=== PATIENT | male | born 1965 | race Caucasian/White ===

== ENCOUNTER 2019-07-07 14:22 | Emergency (ER) | payer BC ==
[2019-07-07] MEDS ORDERED: Ibuprofen TAB* 600 MG PO ONE (16:15)
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
[2019-07-07 17:42] VITALS: BP 151/90
== END 2019-07-07 17:41 | disposition home or self-care (01) ==
LOC: ED 14:22
DX: R10.31 Right lower quadrant pain (principal); E03.9 Hypothyroidism, unspecified; I10 Essential (primary) hypertension; Z85.89 Personal history of malignant neoplasm of other organs and systems; Z79.82 Long term (current) use of aspirin; Z79.890 Hormone replacement therapy; Z79.899 Other long term (current) drug therapy
CPT/HCPCS: 72192; 99282; A9270-GY

== ENCOUNTER 2019-10-22 16:46 | Observation (INO) ==
[2019-10-22 17:46] LABS: ABS Basophils 0.1 10^3/ul (0-0.2); ABS Eosinophils 0.3 10^3/ul (0-0.6); ABS Lymphocytes 1.6 10^3/ul (1.0-4.8); ABS Monocytes 0.6 10^3/ul (0-0.8); Eosinophil % 2.1 %; Hematocrit 34 % (42-52); Hemoglobin 11.3 g/dL (14.0-18.0); Lymphocyte % 11.8 %; Mean Corpuscular HGB Conc 34 g/dL (31-36); Mean Corpuscular Hemoglobin 31 pg (27-31); Mean Corpuscular Volume 93 fL (80-94); Mean Platelet Volume 7.4 fL (7.4-10.4); Platelet Count 153 10^3/uL (150-450); Red Blood Count 3.61 10^6 /uL (4.18-5.48); Red Cell Distribution Width 14 % (10-15); White Blood Count 13.8 10^3/uL (3.5-10.8)
[2019-10-22 18:02] LABS: ALT 12 U/L (7-52); AST 14 U/L (13-39); Albumin/Globulin Ratio 1.2 (1-3); Alkaline Phosphatase 52 U/L (34-104); Anion Gap 3 mmol/L (2-11); BUN/Creatinine Ratio 18.8 (8-20); Blood Urea Nitrogen 22 mg/dL (6-24); CO2 Carbon Dioxide 28 mmol/L (22-32); Calcium 7.8 mg/dL (8.6-10.3); Chloride 105 mmol/L (101-111); EGFR Non-African American 64.5 (>60); Globulin 2.5 g/dL (2-4); Glucose 91 mg/dL (70-100); Potassium 4.1 mmol/L (3.5-5.0); Sodium 136 mmol/L (135-145); Total Protein 5.5 g/dL (6.4-8.9)
[2019-10-22] MEDS ORDERED: Enoxaparin 40 MG/0.4 ML SYR(*) SUBCUT SCH (20:00)
[2019-10-22 22:04] LABS: C Reactive Protein 128.46 mg/L (<8.01)
[2019-10-22 22:10] LABS: Urine Appearance Clear; Urine Bilirubin Negative (Negative); Urine Blood Negative (Negative); Urine Color Amber; Urine Glucose Negative (Negative); Urine Ketones Negative (Negative); Urine Nitrite Negative (Negative); Urine Protein Negative (Negative); Urine Urobilinogen Negative (Negative)
[2019-10-22 22:20] LABS: Troponin I 0.06 ng/mL (<0.03)
[2019-10-22] MEDS: Diclofenac Sod EC 25 mg TAB PO SCH (22:33)
[2019-10-22] MEDS: NS 0.9% 1000 ml BAG 1,000 ML IV SCH (22:37)
[2019-10-22 23:50] LABS: Urine Specific Gravity > 1.050 (1.010-1.030)
[2019-10-23 06:47] LABS: ABS Eosinophils 0.3 10^3/ul (0-0.6); ABS Monocytes 0.4 10^3/ul (0-0.8); Eosinophil % 4.3 %; Hematocrit 33 % (42-52); Hemoglobin 11.6 g/dL (14.0-18.0); Lymphocyte % 12.7 %; Mean Corpuscular HGB Conc 35 g/dL (31-36); Mean Corpuscular Hemoglobin 32 pg (27-31); Mean Corpuscular Volume 92 fL (80-94); Mean Platelet Volume 7.5 fL (7.4-10.4); Platelet Count 157 10^3/uL (150-450); Red Blood Count 3.62 10^6 /uL (4.18-5.48); Red Cell Distribution Width 14 % (10-15); White Blood Count 7.7 10^3/uL (3.5-10.8)
[2019-10-23] MEDS: NS 0.9% 1000 ml BAG 1,000 ML IV SCH ×2 (07:01→14:32)
[2019-10-23 07:04] LABS: Anion Gap 4 mmol/L (2-11); BUN/Creatinine Ratio 17.4 (8-20); Blood Urea Nitrogen 16 mg/dL (6-24); CO2 Carbon Dioxide 27 mmol/L (22-32); Calcium 8.1 mg/dL (8.6-10.3); Chloride 108 mmol/L (101-111); Cholesterol 132 mg/dL; EGFR Non-African American 85.1 (>60); Glucose 117 mg/dL (70-100); HDL Cholesterol 30.5 mg/dL; LDL Cholesterol 86 mg/dL; Potassium 4.5 mmol/L (3.5-5.0); Sodium 139 mmol/L (135-145); Triglycerides 79 mg/dL
[2019-10-23] MEDS ORDERED: Vitamin THERAPEUTIC TAB PO SCH (09:00)
[2019-10-23] MEDS ORDERED: Perflutren Lipid Microsphere 3 ML VIAL ONE (09:42)
[2019-10-23] MEDS: Diclofenac Sod EC 25 mg TAB PO SCH (10:27)
[2019-10-23] MEDS ORDERED: cefTRIAXone 1 gm/50 mL NS BAG 1 GM/50 ML BAG IVPB SCH (13:00)
[2019-10-23] MEDS ORDERED: Azithromycin 500 mg/250 ml NS 500 MG/250 ML BAG IVPB SCH (13:00)
[2019-10-23 15:46] VITALS: BP 143/68
[2019-10-23 16:28] LABS: Troponin I 0.05 ng/mL (<0.03)
== END 2019-10-23 17:30 | disposition home or self-care (01) ==
LOC: ED 16:46 → MED 16:46
PROVIDERS: ADMIT Hospitalist; ATTEND Internal Medicine

== ENCOUNTER 2020-03-18 22:56 | Inpatient (IN) ==
[2020-03-19 00:29] LABS: ABS Lymphocytes 0.3 10^3/ul (1.0-4.8); ABS Monocytes 0.2 10^3/ul (0-0.8); ABS Neutrophils 13.8 10^3/ul (1.5-7.7); Eosinophil % 0.1 %; Hematocrit 40 % (42-52); Hemoglobin 13.3 g/dL (14.0-18.0); Lymphocyte % 2.4 %; Mean Corpuscular HGB Conc 33 g/dL (31-36); Mean Corpuscular Hemoglobin 31 pg (27-31); Mean Corpuscular Volume 92 fL (80-94); Mean Platelet Volume 7.6 fL (7.4-10.4); Platelet Count 271 10^3/uL (150-450); Red Blood Count 4.32 10^6 /uL (4.18-5.48); Red Cell Distribution Width 15 % (10-15); White Blood Count 14.3 10^3/uL (3.5-10.8)
[2020-03-19 00:40] LABS: INR 1.4 (0.82-1.09)
[2020-03-19 00:46] LABS: ALT 18 U/L (7-52); AST 17 U/L (13-39); Albumin 3.5 g/dL (3.2-5.2); Albumin/Globulin Ratio 0.9 (1-3); Alkaline Phosphatase 102 U/L (34-104); Anion Gap 8 mmol/L (2-11); BUN/Creatinine Ratio 31.8 (8-20); Blood Urea Nitrogen 35 mg/dL (6-24); CO2 Carbon Dioxide 27 mmol/L (22-32); Calcium 9.2 mg/dL (8.6-10.3); Chloride 100 mmol/L (101-111); EGFR African American 83.8 (>60); EGFR Non-African American 69.2 (>60); Globulin 3.9 g/dL (2-4); Glucose 118 mg/dL (70-100); Potassium 4.6 mmol/L (3.5-5.0); Sodium 135 mmol/L (135-145); Total Protein 7.4 g/dL (6.4-8.9)
[2020-03-19 00:47] LABS: Influenza A Molecular Negative (Negative); Influenza B Molecular Negative (Negative)
[2020-03-19] MEDS ORDERED: Lactated Ringers 1000 ml BAG 1,000 ML IV ONE (00:49)
[2020-03-19 00:52] LABS: Urine Appearance Clear; Urine Bilirubin Negative (Negative); Urine Blood 1+ (Negative); Urine Color Yellow; Urine Glucose Negative (Negative); Urine Ketones 1+ (Negative); Urine Nitrite Negative (Negative); Urine Protein 1+(30 mg/dL) (Negative); Urine Specific Gravity 1.021 (1.010-1.030); Urine Urobilinogen Negative (Negative)
[2020-03-19 00:55] LABS: Troponin I 0.05 ng/mL (<0.03)
[2020-03-19 00:59] LABS: Urine Bacteria Absent (Absent); Urine Red Blood Cell Trace(0-2/hpf) (Absent); Urine White Blood Cell Trace(0-5/hpf) (Absent)
[2020-03-19 01:50] LABS: Iron < 20 ug/dL (50-212)
[2020-03-19 02:05] LABS: Ferritin 267.9 ng/mL (24-336)
[2020-03-19] MEDS ORDERED: GuaiFENesin DM 100 mg/10 mg in 5 ML UDC PO PRN (02:07)
[2020-03-19 02:10] LABS: Vitamin B12 1368 pg/mL (180-914)
[2020-03-19 03:02] LABS: % Iron Saturation 8 % (15-55); Total Iron Binding Capacity 265 mcg/dL (250-450); Transferrin 189 mg/dL (203-362); Unsaturated Iron Binding < 250 ug/dL
[2020-03-19 05:46] LABS: Hematocrit 40 % (42-52); Hemoglobin 13.5 g/dL (14.0-18.0); Mean Corpuscular HGB Conc 34 g/dL (31-36); Mean Corpuscular Hemoglobin 31 pg (27-31); Mean Corpuscular Volume 92 fL (80-94); Mean Platelet Volume 7.9 fL (7.4-10.4); Platelet Count 277 10^3/uL (150-450); Red Blood Count 4.32 10^6 /uL (4.18-5.48); Red Cell Distribution Width 15 % (10-15); White Blood Count 10.2 10^3/uL (3.5-10.8)
[2020-03-19 06:02] LABS: Anion Gap 8 mmol/L (2-11); BUN/Creatinine Ratio 31.2 (8-20); Blood Urea Nitrogen 29 mg/dL (6-24); CO2 Carbon Dioxide 25 mmol/L (22-32); Chloride 101 mmol/L (101-111); EGFR African American 101.7 (>60); Glucose 151 mg/dL (70-100); Magnesium 1.9 mg/dL (1.9-2.7); Potassium 4.4 mmol/L (3.5-5.0); Sodium 134 mmol/L (135-145)
[2020-03-19 06:13] LABS: Troponin I 0.04 ng/mL (<0.03)
[2020-03-19] MEDS ORDERED: cefTRIAXone 1 gm/50 mL NS BAG 1 GM/50 ML BAG IVPB SCH (16:00)
[2020-03-19] MEDS: Azithromycin 500 mg/250 ml NS 500 MG/250 ML BAG IVPB SCH (16:35)
[2020-03-19] MEDS: Enoxaparin 40 MG/0.4 ML SYR SUBCUT SCH (22:26)
[2020-03-20 06:13] LABS: ABS Lymphocytes 0.8 10^3/ul (1.0-4.8); ABS Monocytes 0.8 10^3/ul (0-0.8); ABS Neutrophils 13.2 10^3/ul (1.5-7.7); Hematocrit 39 % (42-52); Hemoglobin 12.9 g/dL (14.0-18.0); Lymphocyte % 5.7 %; Mean Corpuscular HGB Conc 33 g/dL (31-36); Mean Corpuscular Hemoglobin 30 pg (27-31); Mean Corpuscular Volume 92 fL (80-94); Mean Platelet Volume 7.6 fL (7.4-10.4); Platelet Count 316 10^3/uL (150-450); Red Blood Count 4.28 10^6 /uL (4.18-5.48); Red Cell Distribution Width 15 % (10-15); White Blood Count 14.9 10^3/uL (3.5-10.8)
[2020-03-20 06:27] LABS: BUN/Creatinine Ratio 29.2 (8-20); Calcium 8.9 mg/dL (8.6-10.3); EGFR African American 136.6 (>60); EGFR Non-African American 112.9 (>60); Potassium 3.8 mmol/L (3.5-5.0)
[2020-03-20] MEDS ORDERED: Influenza VAC *QUAD* 2020-21* 0.5 ML SYRINGE IM ONE (09:00)
[2020-03-20] MEDS: Azithromycin 500 mg/250 ml NS 500 MG/250 ML BAG IVPB SCH (16:34)
[2020-03-20] MEDS: Enoxaparin 40 MG/0.4 ML SYR SUBCUT SCH (21:26)
[2020-03-20] MEDS: Amoxicillin/Clavul 875/125 TAB (Augmentin 875 tab) PO SCH (21:26)
[2020-03-21 06:31] LABS: ABS Eosinophils 0.1 10^3/ul (0-0.6); ABS Lymphocytes 1.4 10^3/ul (1.0-4.8); ABS Neutrophils 6.7 10^3/ul (1.5-7.7); Eosinophil % 1.6 %; Hematocrit 40 % (42-52); Hemoglobin 13.2 g/dL (14.0-18.0); Lymphocyte % 14.9 %; Mean Corpuscular HGB Conc 33 g/dL (31-36); Mean Corpuscular Hemoglobin 31 pg (27-31); Mean Corpuscular Volume 93 fL (80-94); Mean Platelet Volume 7.4 fL (7.4-10.4); Nucleated Red Blood Cells % 0.1; Platelet Count 298 10^3/uL (150-450); Red Cell Distribution Width 15 % (10-15); White Blood Count 9.3 10^3/uL (3.5-10.8)
[2020-03-21] MEDS: Amoxicillin/Clavul 875/125 TAB (Augmentin 875 tab) PO SCH (07:58)
[2020-03-21] MEDS ORDERED: methylPREDNISolone SOD 40 mg/ml 1 ml VIAL IV ONE (10:46)
[2020-03-21 11:25] VITALS: BP 110/52
== END 2020-03-21 15:00 | disposition home or self-care (01) | DRG 720 ==
LOC: ED 22:56 → MED 03-19 01:38
PROVIDERS: ADMIT Internal Medicine; ATTEND Internal Medicine

== ENCOUNTER 2020-07-07 05:36 | Inpatient (IN) ==
[2020-07-07] MEDS ORDERED: Buffered Lidocaine 1% SYRIN 1 ml INTRADERM ONE (06:00)
[2020-07-07] MEDS ORDERED: Lactated Ringers 1000 ml BAG 1,000 ML IV SCH (06:00)
[2020-07-07] MEDS ORDERED: ceFAZolin 2 GM PREMIX 2 GM/50 ML BAG ONE (06:08)
[2020-07-07 06:38] LABS: INR 1.12 (0.82-1.09)
[2020-07-07] MEDS ORDERED: fentaNYL 100 mcg/2 ml 50 MCG/ML VIAL ONE (06:48)
[2020-07-07] MEDS ORDERED: Midazolam 5 mg/5 ml VIAL 1 mg/ml 5 ml VIAL (5 mg) ONE (06:49)
[2020-07-07] MEDS ORDERED: Propofol 10 MG/ML 20 ML BTL ONE ×6 (06:51→10:26)
[2020-07-07] MEDS ORDERED: Rocuronium 50 mg VIAL 10 mg/ml 5 ml VIAL (50 mg) ONE ×2 (06:52→08:25)
[2020-07-07] MEDS ORDERED: Vancomycin 1,000 MG VIAL ONE (07:15)
[2020-07-07] MEDS ORDERED: HYDROmorphone 1 MG/1 ML SYRINGE ONE ×2 (07:50→11:49)
[2020-07-07] MEDS ORDERED: EPHEDrine (Pressors) 50 MG/ML VIAL ONE ×2 (08:01→09:56)
[2020-07-07] MEDS ORDERED: Dexamethasone IV 4 MG/ML VIAL 1 ml VIAL ONE (08:14)
[2020-07-07] MEDS ORDERED: Acetaminophen IV 1 GM/100ML 100 ML ONE (08:22)
[2020-07-07] MEDS ORDERED: Phenylephrine 40 mcg/mL 10mL (400mcg) SYRINGE ONE (09:31)
[2020-07-07] MEDS ORDERED: Naloxone 0.4 mg VIAL 0.4 mg/ml 1 ml VIAL IV PRN (09:40)
[2020-07-07] MEDS ORDERED: diPHENhydraMINE IV 50 MG/ML 1 ml VIAL (BENADRYL) IV PRN ×2 (09:40→10:53)
[2020-07-07] MEDS ORDERED: Ondansetron 4 mg VIAL 2 MG/ML 2 ml VIAL ONE (09:42)
[2020-07-07] MEDS ORDERED: Ondansetron ODT 4 mg TAB 4 MG TAB PO PRN (10:53)
[2020-07-07] MEDS ORDERED: Ondansetron 4 mg VIAL 2 MG/ML 2 ml VIAL IV PRN (10:53)
[2020-07-07] MEDS ORDERED: diPHENhydraMINE 25 mg TAB PO PRN (10:53)
[2020-07-07] MEDS ORDERED: Morphine 2 MG/ML SYRINGE IV PRN (10:53)
[2020-07-07] MEDS ORDERED: Magnesium Hydroxide LIQ 30 ML UDC PO PRN (10:53)
[2020-07-07] MEDS ORDERED: Lactulose 30 ml UDC PO PRN (10:53)
[2020-07-07] MEDS: HYDROmorphone 1 MG/1 ML SYRINGE IV PRN ×2 (11:52→12:08)
[2020-07-07] MEDS: D5W 1/2 NS 1000 ml BAG 1,000 ML IV SCH (12:40)
[2020-07-07] MEDS: ceFAZolin 1 GM ADVAN 1 GM in NS 0.9% 50 ML 50 ML IVPB SCH (15:55)
[2020-07-07] MEDS: Magnesium Hydroxide LIQ 30 ML UDC PO SCH (21:37)
[2020-07-08] MEDS: D5W 1/2 NS 1000 ml BAG 1,000 ML IV SCH ×3 (01:03→21:01)
[2020-07-08] MEDS: ceFAZolin 1 GM ADVAN 1 GM in NS 0.9% 50 ML 50 ML IVPB SCH ×2 (01:10→08:17)
[2020-07-08 04:52] LABS: Hematocrit 27 % (42-52); Hemoglobin 8.9 g/dL (14.0-18.0); Mean Platelet Volume 6.8 fL (7.4-10.4); Platelet Count 283 10^3/uL (150-450)
[2020-07-08 05:07] LABS: BUN/Creatinine Ratio 22.7 (8-20); Calcium 8.2 mg/dL (8.6-10.3); EGFR Non-African American 89.3 (>60); Potassium 4.9 mmol/L (3.5-5.0)
[2020-07-08] MEDS: Vitamin THERAPEUTIC TAB PO SCH (08:18)
[2020-07-08] MEDS: Magnesium Hydroxide LIQ 30 ML UDC PO SCH ×3 (08:18→21:25)
[2020-07-08] MEDS ORDERED: NS 0.9% 500 ml BAG 500 ML IV ONE (09:55)
[2020-07-08 13:22] LABS: Hematocrit 26 % (42-52); Hemoglobin 8.6 g/dL (14.0-18.0)
[2020-07-08] MEDS ORDERED: Iodixanol (CONTRAST) 320 MG/ML 100 ML SDV IV ONE (16:14)
[2020-07-08] MEDS: cefTRIAXone 1 gm/50 mL NS BAG 1 GM/50 ML BAG IVPB SCH (21:04)
[2020-07-08] MEDS: Azithromycin 500 mg/250 ml NS 500 MG/250 ML BAG IVPB SCH (23:08)
[2020-07-09 04:50] LABS: Hematocrit 28 % (42-52); Hemoglobin 9.4 g/dL (14.0-18.0); Mean Platelet Volume 7.1 fL (7.4-10.4); Platelet Count 262 10^3/uL (150-450)
[2020-07-09 07:47] LABS: BUN/Creatinine Ratio 20.8 (8-20); C Reactive Protein 70.2 mg/L (<8.01); Calcium 8.1 mg/dL (8.6-10.3); EGFR Non-African American 104.1 (>60); Potassium 4.4 mmol/L (3.5-5.0)
[2020-07-09] MEDS: Magnesium Hydroxide LIQ 30 ML UDC PO SCH ×2 (09:58→21:55)
[2020-07-09] MEDS ORDERED: NS 0.9% 250 ml 250 ML IV ONE (10:15)
[2020-07-09] MEDS: Vitamin THERAPEUTIC TAB PO SCH (10:17)
[2020-07-09] MEDS ORDERED: Iron Sucrose 200 MG in NS 0.9% 100 ml BAG 100 ML IVPB ONE (12:00)
[2020-07-09] MEDS: cefTRIAXone 1 gm/50 mL NS BAG 1 GM/50 ML BAG IVPB SCH (21:56)
[2020-07-09] MEDS: Azithromycin 500 mg/250 ml NS 500 MG/250 ML BAG IVPB SCH (22:45)
[2020-07-10 05:59] LABS: Hematocrit 26 % (42-52); Hemoglobin 8.8 g/dL (14.0-18.0); Mean Corpuscular HGB Conc 34 g/dL (31-36); Mean Corpuscular Hemoglobin 30 pg (27-31); Mean Corpuscular Volume 90 fL (80-94); Mean Platelet Volume 6.7 fL (7.4-10.4); Platelet Count 267 10^3/uL (150-450); Red Blood Count 2.91 10^6 /uL (4.18-5.48); Red Cell Distribution Width 15 % (10-15); White Blood Count 8.2 10^3/uL (3.5-10.8)
[2020-07-10] MEDS ORDERED: Buffered Lidocaine 1% SYRIN 1 ml INTRADERM ONE (06:00)
[2020-07-10] MEDS ORDERED: Lactated Ringers 1000 ml BAG 1,000 ML IV SCH (06:00)
[2020-07-10 06:15] LABS: Calcium 8.5 mg/dL (8.6-10.3); EGFR African American 174.7 (>60); EGFR Non-African American 144.4 (>60)
[2020-07-10] MEDS ORDERED: Benzocaine/Butamben/Tetracain (CETACAINE - SINGLE USE) 5 gm TOPICAL ONE (07:07)
[2020-07-10] MEDS ORDERED: Lidocaine 1% VIAL 10 MG/ML VIAL ONE (07:08)
[2020-07-10] MEDS ORDERED: fentaNYL 100 mcg/2 ml 50 MCG/ML VIAL ONE (07:22)
[2020-07-10] MEDS ORDERED: Propofol 10 MG/ML 20 ML BTL ONE ×2 (07:22)
[2020-07-10] MEDS ORDERED: Succinylcholine 200 mg VIAL 20 mg/ml 10 ml VIAL (200 mg) ONE (07:22)
[2020-07-10] MEDS ORDERED: Lidocaine 2% PF 5 ML VIAL ONE (07:22)
[2020-07-10] MEDS ORDERED: EPHEDrine (Pressors) 50 MG/ML VIAL ONE (07:54)
[2020-07-10] MEDS ORDERED: Ondansetron 4 mg VIAL 2 MG/ML 2 ml VIAL ONE (07:57)
[2020-07-10] MEDS ORDERED: Naloxone 0.4 mg VIAL 0.4 mg/ml 1 ml VIAL IV PRN (08:28)
[2020-07-10] MEDS: Vitamin THERAPEUTIC TAB PO SCH (10:23)
[2020-07-10] MEDS: Magnesium Hydroxide LIQ 30 ML UDC PO SCH ×2 (14:26→20:51)
[2020-07-10] MEDS: cefTRIAXone 1 gm/50 mL NS BAG 1 GM/50 ML BAG IVPB SCH (20:50)
[2020-07-10] MEDS: Azithromycin 500 mg/250 ml NS 500 MG/250 ML BAG IVPB SCH (22:41)
[2020-07-11 06:35] LABS: Hematocrit 26 % (42-52); Hemoglobin 8.9 g/dL (14.0-18.0); Mean Platelet Volume 6.9 fL (7.4-10.4); Platelet Count 297 10^3/uL (150-450)
[2020-07-11] MEDS: Vitamin THERAPEUTIC TAB PO SCH (09:26)
[2020-07-11] MEDS: Magnesium Hydroxide LIQ 30 ML UDC PO SCH (09:26)
[2020-07-11 11:51] VITALS: BP 151/62
== END 2020-07-11 16:45 | disposition home health service (06) | DRG 301 ==
LOC: SSU 05:36 → OR 05:36 → SSU 07-08 19:20
PROVIDERS: ADMIT Orthopaedic Surgery; ATTEND Orthopaedic Surgery